=== PATIENT | male | born 1970 | race Caucasian/White ===

== ENCOUNTER 2018-01-09 16:00 | Emergency (ER) | payer OTHER ==
--- NOTE | 2018-01-09 16:29 | CPEKG ---
Heart Rate: 77 RR Interval: 779 P-R Interval: 204 QRSD Interval: 98 QT Interval: 368 QTC Interval: 417 P [place]: 58 QRS [place]: 46 T Wave [place]: 10 EKG Severity - BORDERLINE ECG - EKG Impression: SINUS RHYTHM EKG Impression: PROBABLE LEFT ATRIAL ABNORMALITY Electronically Signed By: Armando Kinsey 09-Jan-2018 17:37:13
--- NOTE | 2018-01-09 17:03 | EDPHY ---
H & P Time Seen by Provider: 01/09/18 16:35 HPI/ROS: Chief complaint. Syncope HPI. 47-year-old male presents emergency department after passing out 2 nights ago while getting up to go to the bathroom. He was out for just a few seconds. He had no chest pain or shortness of breath. No injury. Yesterday and today he has had no symptoms. The patient and his came from [facility] 2 weeks ago on a professional exchange. He has no unusual leg pain or swelling. No chest discomfort no shortness of breath no fever or cough. After the syncopal episode he has not had any symptoms. He has not had syncope previously ROS Constitutional. no fever/chills, no weakness Eyes. no problems with vision ENT. no sore throat, no nasal drainage Cardiovascular. no chest pain Respiratory. no shortness of breath, no cough Abdominal. no abdominal pain, no nausea/vomiting, no diarrhea . no problems urinating MS. no calf pain/swelling, no neck/back pain, no joint pain Skin. no rash Lymph. no swollen glands Neuro. Syncope Past Medical/Surgical History: Concussion, IBS, anxiety Social History: , nonsmoker, no alcohol Smoking Status: Never smoked Physical Exam: General Appearance: Alert pleasant well-developed male no distress vital signs are stable Eyes: Pupils equal and round no pallor or injection. ENT, Mouth: Mucous membranes are moist. Respiratory: There are no retractions, lungs are clear to auscultation. Cardiovascular: Regular rate and rhythm. Gastrointestinal: Abdomen is soft and nontender, no masses, bowel sounds normal. Neurological: Awake and alert, sensory and motor exams grossly normal. Skin: Warm and dry, no rashes. Musculoskeletal: Neck is supple nontender. Extremities symmetrical, full range of motion. Psychiatric: Patient is oriented X 3, there is no agitation. Constitutional: Initial Vital Signs Temperature (C) 36.7 C 01/09/18 16:01 Heart Rate 78 01/09/18 16:01 Respiratory Rate 16 01/09/18 16:01 Blood Pressure 113/78 01/09/18 16:01 O2 Sat (%) 96 01/09/18 16:01 O2 Delivery Mode Room Air Allergies/Adverse Reactions: No Known Allergies Allergy (Unverified 01/09/18 16:05) Home Medications: Medication Instructions Recorded NK [No Known Home Meds] 01/09/18 Medical Decision Making - Diagnostics EKG Interpretation: EKG interpreted by me shows normal sinus rhythm with normal interval and axis. QRS is normal there is no significant ST elevation or depression. There is no arrhythmia. The rate is 77 Procedures: IV normal saline, monitor ED Course/Re-evaluation: On re-evaluation patient is stable. He he and I discussed laboratory an EKG evaluation. We discussed treatment plan including criteria for return importance of follow-up and further evaluation. He expresses understanding and agreement Differential Diagnosis: Syncope 2 days ago 2 weeks after coming to [place] from [facility]. He has no leg symptoms and no pleuritic chest pain I really do not think he has a pulmonary embolus. He has had no symptoms since his brief passing out episode. I believe this is make sure a garza syncope. Probably complicated by coming to altitude. No evidence for acute coronary syndrome - Data Points Laboratory Results: Laboratory Results 01/09/18 16:29 01/09/18 16:29 01/09/18 01/09/18 16:29 16:29 WBC 6.77 10^3/uL 10^3/uL (3.80-9.50) RBC 4.97 10^6/uL 10^6/uL (4.40-6.38) Hgb 14.9 g/dL g/dL (13.7-17.5) Hct 42.9 % % (40.0-51.0) MCV 86.3 fL fL (81.5-99.8) MCH 30.0 pg pg (27.9-34.1) MCHC 34.7 g/dL g/dL (32.4-36.7) RDW 12.2 % % (11.5-15.2) Plt Count 219 10^3/uL 10^3/uL (150-400) MPV 9.8 fL fL (8.7-11.7) Neut % (Auto) 65.0 % % (39.3-74.2) Lymph % (Auto) 25.3 % % (15.0-45.0) Turner % (Auto) 8.6 % % (4.5-13.0) Eos % (Auto) 0.7 % % (0.6-7.6) Baso % (Auto) 0.3 % % (0.3-1.7) Nucleat RBC Rel Count 0.0 % % (0.0-0.2) Absolute Neuts (auto) 4.40 10^3/uL 10^3/uL (1.70-6.50) Absolute Lymphs (auto) 1.71 10^3/uL 10^3/uL (1.00-3.00) Absolute Monos (auto) 0.58 10^3/uL 10^3/uL (0.30-0.80) Absolute Eos (auto) 0.05 10^3/uL 10^3/uL (0.03-0.40) Absolute Basos (auto) 0.02 10^3/uL 10^3/uL (0.02-0.10) Absolute Nucleated RBC 0.00 10^3/uL 10^3/uL (0-0.01) Immature Gran % 0.1 % % (0.0-1.1) Immature Gran # 0.01 10^3/uL 10^3/uL (0.00-0.10) Sodium 141 mEq/L mEq/L (135-145) Potassium 4.0 mEq/L mEq/L (3.3-5.0) Chloride 99 mEq/L mEq/L (97-110) Carbon Dioxide 30 mEq/l mEq/l (22-31) Anion Gap 12 mEq/L mEq/L (8-16) BUN 19 mg/dL mg/dL (7-23) Creatinine 1.0 mg/dL mg/dL (0.7-1.3) Estimated GFR > 60 Glucose 84 mg/dL mg/dL (70-100) Calcium 8.8 mg/dL mg/dL (8.5-10.4) Troponin I < 0.012 ng/mL ng/mL (0.000-0.034) Departure - Departure Disposition: Home, Routine, Self-Care Clinical Impression: Syncope Qualifiers: Syncope type: vasovagal syncope Qualified Code(s): R55 - Syncope and collapse Condition: Good Instructions: Syncope (ED) Additional Instructions: Drink plenty of fluids and stay hydrated. Regular meals. Regular sleep. Return for another passing out episode, chest discomfort, trouble breathing. Referrals: NONE *PRIMARY CARE P,. [Primary Care Provider] - As per Instructions
[2018-01-09 17:27] LABS: PLATELET COUNT 219 10^3/uL (150-400)
[2018-01-09 18:31] VITALS: BP 102/67
== END 2018-01-09 18:31 | disposition home or self-care (01) ==
DX: R55 Syncope and collapse (principal)